=== PATIENT | female | born 1950 | race Caucasian/White ===

== ENCOUNTER 2017-11-02 09:47 | Emergency (ER) | payer MEDICARE, MEDICAID ==
--- NOTE | 2017-11-02 10:32 | C.PDOC ---
History Of Present Illness 67-year-old female, presents to the emergency department accompanied by sister, with complaints of non-traumatic right inguinal pain x3 weeks. Initially, pain was intermittent in nature, reproducible by walking or standing, but over the past few days, pain has become constant. She is taking Motrin (400mg) at home with minimal relief. Last dose was last night. Patient denies nausea/vomiting, numbness/weakness, vaginal bleeding/discharge, dysuria, abdominal pain or back pain. No other complaints at this time. Chief Complaint (Nursing): Abdominal Pain History Per: Patient History/Exam Limitations: no limitations Past Medical History Reviewed: Historical Data, Nursing Documentation, Vital Signs Vital Signs: Last Vital Signs Temp 98.3 F 11/02/17 11:55 Pulse 58 L 11/02/17 11:55 Resp 20 11/02/17 11:55 BP 143/88 11/02/17 11:55 Pulse Ox 96 11/02/17 11:55 - Medical History PMH: Osteoporosis Family History: States: No Known Family Hx - Social History Hx Alcohol Use: No Hx Substance Use: No - Immunization History Hx Tetanus Toxoid Vaccination: No Hx Influenza Vaccination: No Hx Pneumococcal Vaccination: No Review Of Systems Except As Marked, All Systems Reviewed And Found Negative. Constitutional: Negative for: Fever, Chills Gastrointestinal: Negative for: Vomiting, Abdominal Pain Genitourinary: Negative for: Dysuria, Frequency, Incontinence, Hematuria, Vaginal Discharge, Vaginal Bleeding, Pelvic Pain Musculoskeletal: Positive for: Other (Right inguinal pain). Negative for: Back Pain Neurological: Negative for: Weakness, Numbness Physical Exam - Physical Exam Appears: Well, Non-toxic, No Acute Distress Skin: Normal Color, Warm, Dry, No Rash Head: Normacephalic Eye(s): bilateral: PERRL Nose: Normal Oral Mucosa: Moist Lips: Normal Appearing Neck: Normal ROM Respiratory: No Decreased Breath Sounds, No Accessory Muscle Use Gastrointestinal/Abdominal: Soft, No Tenderness, No Guarding, No Rebound Extremity: Normal ROM, Capillary Refill (<2 seconds), No Deformity, No Swelling , Other (Right Hip: reproducible pain with hyperflexion, and internal roation. No mass. No hernia) Neurological/Psych: Oriented x3, Normal Speech ED Course And Treatment O2 Sat by Pulse Oximetry: 97 Pulse Ox Interpretation: Normal - Other Rad XR HIP X-Ray: Viewed By Me, Read By Radiologist Interpretation: Accession No. : [id number]. Patient Name / ID : YOHANA CALIXTO / [id number]. Exam Date : 11/02/2017 10:42:28 ( Approved ). Study Comment : Sex / Age : F / 67Y. Creator : Yariel Leslie MD. Dictator : Yariel Leslie MD. Ada Accommodation Consultant : Senior Librarian : Yariel Leslie MD. Approver2 : Report Date : 11/02/2017 11:10:32. My Comment : . PROCEDURE: Right Hip Radiographs. HISTORY: PAIN. COMPARISON: None. FINDINGS: BONES : No acute fracture. JOINTS: Normal. SOFT TISSUES: Normal. OTHER FINDINGS : None. IMPRESSION: No demonstrated fracture or dislocation. Reevaluation Time: 11:27 Reassessment Condition: Improved Medical Decision Making Medical Decision Making: Impression 67y/o F comes in with right inguinal pain x3 weeks. Plan: * Toradol * X-Ray: Hip (2 Views) * Reassess and Disposition On re-evaluation: Disposition Counseled Patient/Family Regarding: Studies Performed, Diagnosis, Need For Followup, Rx Given - Disposition Referrals: YOUR,PMD [Other] Disposition: HOME/ ROUTINE Disposition Time: 11:28 Condition: IMPROVED Additional Instructions: TAKE MOTRIN 3 TABS EVERY 6-8 HRS NEEDED. APPLY PATCH TO AFFECTED AREA. MAX 3 PATCHES AT A TIME. REMOVE PATCH 12 HOURS AFTER INITIAL APPLICATION. ALTERNATE 12 HOURS ON, 12 HOURS OFF. Prescriptions: Lidocaine 5% [Lidoderm] 1 ea TD PRN PRN #10 patch PRN Reason: Pain, Moderate (4-7) Instructions: Hip Pain Forms: [email or web address] (Stat[employer]) - Clinical Impression Clinical Impression: Chronic groin pain, Hip pain - Scribe Statement The provider has reviewed the documentation as recorded by the Scribe (Maggie Miller) All medical record entries made by the Preetibsalvador were at my direction and personally dictated by me. I have reviewed the chart and agree that the record accurately reflects my personal performance of the history, physical exam, medical decision making, and the department course for this patient. I have also personally directed, reviewed, and agree with the discharge instructions and disposition.
--- NOTE | 2017-11-02 11:12 | RAD ---
PROCEDURE: Right Hip Radiographs. HISTORY: PAIN COMPARISON: None. FINDINGS: BONES: No acute fracture. JOINTS: Normal. SOFT TISSUES: Normal. OTHER FINDINGS: None. IMPRESSION: No demonstrated fracture or dislocation.
[2017-11-02] MEDS ORDERED: Lidocaine 5% Patch TD STA (11:29)
[2017-11-02] MEDS ORDERED: Lidocaine 5% Patch TD ONE (11:39)
[2017-11-02 12:00] VITALS: BP 143/88; PULSE 58; RESP 20; TEMP 98.3
[2017-11-02 13:07] VITALS: O2SAT 97
== END 2017-11-02 11:55 | disposition home or self-care (01) ==
LOC: C.ER 09:47
DX: G89.29 Other chronic pain (principal); R10.31 Right lower quadrant pain; M25.551 Pain in right hip
CPT/HCPCS: 73502; 96372; 99283; J1885